=== PATIENT | male | born 1990 | race American Indian/Alaskan Native ===

== ENCOUNTER 2018-06-20 06:33 | Emergency (ER) | payer SELFPAY ==
[2018-06-20] MEDS ORDERED: ATIVAN IM PRN ×3 (09:43)
[2018-06-20] MEDS ORDERED: HALDOL IM PRN (09:43)
--- NOTE | 2018-06-20 09:45 | Emergency Department Report ---
ED General Adult HPI - General Chief complaint: Psych Stated complaint: SUICIDAL THOUGHTS Time Seen by Provider: 06/20/18 09:42 Source: patient, RN notes reviewed Mode of arrival: Ambulatory Limitations: No Limitations - History of Present Illness Initial comments: This is a 27-year-old gentleman who is not known to this provider previously, who presents to the ER with a complaint of suicidality and plan to self-harm with a knife. Symptoms are constant, painless, do not radiate anywhere, and do not have exacerbating or relieving factors. He denies headache, neck pain, chest pain, abdominal pain, shortness of breath. He denies hallucinations and intent to overdose. He also endorses that he consumes 48-72 ounces of malt liquor on a daily basis. He does not feel like he is actively withdrawing from alcohol at this time. Has chronic lower back pain which is not a new, worsening or different. No saddle anesthesia, and no bladder or bowel retention or incontinence. -: Gradual Consistency: constant Improves with: none Worsens with: none Associated Symptoms: malaise, other (see history of present illness). denies: confusion, chest pain, cough, diaphoresis, fever/chills, headaches, loss of appetite, nausea/vomiting, rash, seizure, shortness of breath, syncope, weakness - Related Data Allergies Allergy/AdvReac Type Severity Reaction Status Date / Time No Known Allergies Allergy Unverified 06/20/18 07:12 ED Review of Systems ROS: Stated complaint: SUICIDAL THOUGHTS Other details as noted in HPI Comment: All other systems reviewed and negative Cardiovascular: denies: chest pain Gastrointestinal: denies: abdominal pain Musculoskeletal: back pain Neurological: denies: headache Psychiatric: depression, suicidal thoughts. denies: auditory hallucinations, visual hallucinations, homicidal thoughts ED Past Medical Hx - Past Medical History Previous Medical History?: No - Surgical History Past Surgical History?: No - Social History Smoking Status: Current Every Day Smoker Substance Use Type: Alcohol, Marijuana ED Physical Exam - General Limitations: No Limitations General appearance: alert, in no apparent distress - Head Head exam: Present: atraumatic, normocephalic - Eye Eye exam: Present: normal appearance, EOMI. Absent: nystagmus - ENT ENT exam: Present: normal exam, normal orophraynx, mucous membranes moist, other (no tongue fasciculations noted) - Neck Neck exam: Present: normal inspection, full ROM. Absent: tenderness, meningismus - Respiratory Respiratory exam: Present: normal lung sounds bilaterally. Absent: respiratory distress - Cardiovascular Cardiovascular Exam: Present: regular rate, normal rhythm, normal heart sounds. Absent: bradycardia, tachycardia, irregular rhythm, systolic murmur, diastolic murmur, rubs, gallop - GI/Abdominal GI/Abdominal exam: Present: soft. Absent: distended, tenderness, guarding, rebound, rigid, pulsatile mass - Rectal Rectal exam: Present: deferred - Extremities Exam Extremities exam: Present: normal inspection, full ROM, normal capillary refill , other (2+ pulses noted in the bilateral upper, lower extremities. Compartments soft. No long bony tenderness. The pelvis is stable.). Absent: tenderness, pedal edema, joint swelling, calf tenderness - Back Exam Back exam: Present: normal inspection, full ROM. Absent: tenderness, CVA tenderness (R), paraspinal tenderness, vertebral tenderness - Neurological Exam Neurological exam: Present: alert, oriented X3, CN II-XII intact, normal gait, other (Extraocular movements intact. Tongue midline. No facial droop. Facial sensation intact to light touch in the V1, V2, V3 distribution bilaterally. 5 and 5 strength in 4 extremities.. Sensation is intact to light touch in 4 extremities.). Absent: motor sensory deficit - Psychiatric Psychiatric exam: Present: suicidal ideation. Absent: homicidal ideation - Skin Skin exam: Present: warm, dry, intact, normal color. Absent: rash ED Course Vital Signs 06/20/18 06/20/18 07:07 11:03 Temperature 98.4 F 98.4 F Pulse Rate 77 80 Respiratory 18 20 Rate Blood Pressure 136/88 Blood Pressure 132/90 [Left] O2 Sat by Pulse 97 97 Oximetry ED Medical Decision Making - Lab Data Result diagrams: 06/20/18 09:48 06/20/18 09:48 Vital Signs 06/20/18 06/20/18 07:07 11:03 Temperature 98.4 F 98.4 F Pulse Rate 77 80 Respiratory 18 20 Rate Blood Pressure 136/88 Blood Pressure 132/90 [Left] O2 Sat by Pulse 97 97 Oximetry Lab Results 06/20/18 06/20/18 06/20/18 Range/Units 09:48 09:48 09:48 WBC 12.1 H (4.5-11.0) K/mm3 RBC 4.70 (3.65-5.03) M/mm3 Hgb 15.1 (11.8-15.2) gm/dl Hct 44.4 (35.5-45.6) % MCV 95 H (84-94) fl MCH 32 (28-32) pg MCHC 34 (32-34) % RDW 12.7 L (13.2-15.2) % Plt Count 189 (140-440) K/mm3 Sodium 138 (137-145) mmol/L Potassium 3.9 (3.6-5.0) mmol/L Chloride 100.3 (98-107) mmol/L Carbon Dioxide 21 L (22-30) mmol/L Anion Gap 21 mmol/L BUN 12 (9-20) mg/dL Creatinine 0.9 (0.8-1.5) mg/dL Estimated GFR > 60 ml/min BUN/Creatinine Ratio 13 % Glucose 118 H (75-100) mg/dL Calcium 8.7 (8.4-10.2) mg/dL Magnesium 2.10 (1.7-2.3) mg/dL Total Creatine Kinase 325 H (55-170) units/L Salicylates (2.8-20.0) mg/dL Acetaminophen (10.0-30.0) ug/mL 06/20/18 06/20/18 Range/Units 09:48 09:48 WBC (4.5-11.0) K/mm3 RBC (3.65-5.03) M/mm3 Hgb (11.8-15.2) gm/dl Hct (35.5-45.6) % MCV (84-94) fl MCH (28-32) pg MCHC (32-34) % RDW (13.2-15.2) % Plt Count (140-440) K/mm3 Sodium (137-145) mmol/L Potassium (3.6-5.0) mmol/L Chloride (98-107) mmol/L Carbon Dioxide (22-30) mmol/L Anion Gap mmol/L BUN (9-20) mg/dL Creatinine (0.8-1.5) mg/dL Estimated GFR ml/min BUN/Creatinine Ratio % Glucose (75-100) mg/dL Calcium (8.4-10.2) mg/dL Magnesium (1.7-2.3) mg/dL Total Creatine Kinase (55-170) units/L Salicylates < 0.3 L (2.8-20.0) mg/dL Acetaminophen < 5.0 L (10.0-30.0) ug/mL - Medical Decision Making Differential diagnosis, including but not limited to: Mood disorder, suicidality , alcohol dependence, medical clearance for psychiatric placement Assessment and plan: 27-year-old gentleman with suicidality and plan. He is placed on a 1013. His physical examination is unremarkable. His presentation at this time is not consistent with alcohol withdrawal syndrome. Serum toxicology studies are unremarkable. Patient clinically sober at this time, with a GCS of 15. Explained what a 1013 signifies. As needed medications ordered for alcohol withdrawal as well as agitation. At this point in time, there does not appear to be an immediate medical contraindication to psychiatric admission, evaluation, consultation. The crisis team is paged and informed. Critical care attestation.: If time is entered above; I have spent that time in minutes in the direct care of this critically ill patient, excluding procedure time. ED Disposition Clinical Impression: Medical clearance for psychiatric admission, History of alcohol dependence Disposition: [id number]/TX-65 PSY HOSP/PSY UNIT Is pt being admited?: No Does the pt Need Aspirin: No Condition: Good Referrals: PRIMARY CARE, [Primary Care Provider] - 3-5 Days
[2018-06-20 10:03] LABS: Hematocrit 44.4 % (35.5-45.6); Hemoglobin 15.1 gm/dl (11.8-15.2); Mean Corpuscular HGB Conc 34 % (32-34); Mean Corpuscular Hemoglobin 32 pg (28-32); Mean Corpuscular Volume 95 fl (84-94); Platelet Count 189 K/mm3 (140-440); Red Cell Distribution Width 12.7 % (13.2-15.2)
[2018-06-20 10:18] LABS: BUN/Creatinine Ratio 13; Blood Urea Nitrogen 12 mg/dL (9-20); Calcium 8.7 mg/dL (8.4-10.2); Hemolysis Index 22
[2018-06-20 16:00] LABS: Bilirubin,Urine NEG (Negative); Blood,Urine NEG (Negative); Color,Urine Yellow (Yellow); Mucus,Urine FEW /HPF; Protein,Urine <15 mg/dL mg/dL (Negative); RBC,Urine < 1.0 /HPF (0.0-6.0); Urobilinogen,Urine < 2.0 mg/dL (<2.0)
[2018-06-21 00:39] LABS: Amphetamine Screen,Urine PRESUMPTIVE NEGATIVE; Benzodiazepines Screen,Urine PRESUMPTIVE NEGATIVE; Cocaine Screen,Urine PRESUMPTIVE NEGATIVE; Methadone Screen,Urine PRESUMPTIVE NEGATIVE; Opiate Screen,Urine PRESUMPTIVE NEGATIVE
[2018-06-21 01:36] LABS: Cannabinoid Screen,Urine PRESUMPTIVE POSITIVE
[2018-06-21 15:19] LABS: Alanine Aminotransferase 18 units/L (7-56)
[2018-06-21 15:24] LABS: Bilirubin,Direct < 0.2 mg/dL (0-0.2)
--- NOTE | 2018-06-21 18:45 | Consultation ---
History of Present Illness - Reason for Consult Consult date: 06/21/18 Reason for consult: psychiatric evaluation - Chief Complaint Chief complaint: "depression and suicidal thoughts; I called 911" - History of Present Psychiatric Illness Mr. Sun is a 27 year old male seen in the ER for suicidal ideation with a plan to self-harm with a knife. He denies hallucinations and intent to overdose. He also endorses that he consumes 48-72 ounces of malt liquor on a daily basis. He does not feel like he is actively withdrawing from alcohol at this time. He asks for a nicotine patch and smokes 10 cigarettes per day. He was hospitalized last year for similar symptoms. He was on prozac and trazodone. He would like to restart them. He denies manic or psychotic symptoms. Medications and Allergies Allergies Allergy/AdvReac Type Severity Reaction Status Date / Time No Known Allergies Allergy Unverified 06/20/18 07:12 Active Meds: Active Medications Haloperidol Lactate (Haldol) 5 mg IM Q6HR PRN PRN Reason: Agitation Lorazepam (Ativan) 2 mg IM Q4HR PRN PRN Reason: Agitation Lorazepam (Ativan) 2 mg IM Q2HR PRN PRN Reason: CIWA-Ar 8-15 Lorazepam (Ativan) 4 mg IM Q1H PRN PRN Reason: CIWA-Ar 16-25 Past psychiatric history - Past Medical History Past Medical History: other (scoliosis) - past Psychiatric treatment and history Psych: Addictions, Depression Mental Status Exam - Vital signs Last Vital Signs Temp 98.2 F 06/21/18 13:00 Pulse 55 L 06/21/18 13:00 Resp 20 06/21/18 13:00 BP 119/67 06/21/18 13:00 Pulse Ox 97 06/21/18 13:00 - Exam Orientation: time, place, person Affect: depressed Mood: congruent with affect Thought content: other (suicidal ideation. no HI) Thought Process: Intact Perceptions: none Speech: normal rate and pattern Concentration: focused Motor activity: normal Level of consciousness: alert Memory: Intact Sleep Symptoms: Difficulty Falling Asleep Appetite: decreased Interaction: cooperative Results Result Diagrams: 06/20/18 09:48 06/20/18 09:48 All other labs normal. Assessment and Plan Assessment and plan: Impression: suicidal ideation with a plan to cut himself major depressive disorder, severe, recurrent alcohol use disorder, unspecified, no current withdrawal symptoms Recommendation: start prozac 20mg daily for depression start trazodone 50mg hs for sleep. He was informed of risks vs. benefits and potential side effects add nicotine patch 14mg daily td monitor for alcohol withdrawal dispo: continue 1013 and transfer to inpatient psychiatric facility Staffed with Dr. Luis Eduardo Francois.
[2018-06-21] MEDS ORDERED: XYLOCAINE 2% INFILTRATI ONE (20:58)
[2018-06-21] MEDS: DESYREL PO SCH (23:26)
[2018-06-21] MEDS: HABITROL TD SCH (23:50)
[2018-06-22] MEDS: PROzac PO SCH (10:59)
[2018-06-22] MEDS: HABITROL TD SCH (10:59)
--- NOTE | 2018-06-22 12:43 | Progress Note ---
Subjective - Reason for Consult Consult date: 06/22/18 Reason for consult: Psychiatry Follow-up - Chief Complaint Chief complaint: "I was having a mental breakdown" 27 year old male seen in the ER for suicidal ideation with a plan to self-harm with a knife. Today the patient is calm and cooperative during the assessment. He stated that his life since his adolescent days have been rough. He didn't elaborate more when asked. He stated that prior to his admission to the ER, he wanted his life to end. He stated that he have been doing some reflecting about his life. He stated that he need stabilization. He denies SI/HI's and AVH's. He denies any side effects of his medications. Mental Status Exam - Vital signs Last Vital Signs Temp 98.6 F 06/22/18 01:09 Pulse 61 06/22/18 01:09 Resp 18 06/22/18 01:09 BP 147/75 06/22/18 01:09 Pulse Ox 99 06/22/18 01:09 - Exam Narrative exam: MSE: Appearance: calm, cooperative Behavior: regular eye contact Speech: regular rate and tone Mood: "okay" Affect: flat Thought Process: circumstantial Thought Content: denies SI/HI's and AVH's Motor Activity: ambulatory Cognition: A/O x3 Insight: variable Judgment: variable Assessment and Plan Impression: MDD, Severe Type. R/O Alcohol Use DO. Cannabis Use DO. Today the patient is calm and cooperative during the assessment. DDx: R/O Bipolar Do, R/O Substance Induced Mood DO Recommendation/Plan: Continue 1013, Prozac 20 mg PO daily for depression, and Trazodone 50 mg PO HS for sleep. Discussed possible suicidality/medication induced aundrea reference antidepressants. Dispo: The patient was referred to inpatient psy services. Will staff with Dr. Homar Francois.
[2018-06-22] MEDS: DESYREL PO SCH (21:36)
--- NOTE | 2018-06-23 09:55 | Progress Note ---
Subjective - Reason for Consult Consult date: 06/23/18 Reason for consult: Psychiatry Follow-up - Chief Complaint Chief complaint: "I want the needed help" 27 year old male seen in the ER for suicidal ideation with a plan to self-harm with a knife. Today the patient is calm and cooperative during the assessment. He was more forth coming about his crisis prior to his admission to the ER. He stated that he was "really" having a mental breakdown. He could not explain why , but stated, "I wasn't safe for myself." He stated that he haven't been sleeping well. He stated that this is an issue for him. He denies SI/HI's and AVH's. He denies any side effects of his medications. Mental Status Exam - Vital signs Last Vital Signs Temp 98.1 F 06/22/18 20:44 Pulse 65 06/22/18 20:44 Resp 18 06/22/18 20:44 BP 149/79 06/22/18 20:44 Pulse Ox 99 06/22/18 20:44 - Exam Narrative exam: MSE: Appearance: calm, cooperative Behavior: regular eye contact Speech: regular rate and tone Mood: "okay" Affect: flat Thought Process: circumstantial Thought Content: denies SI/HI's and AVH's Motor Activity: ambulatory Cognition: A/O x3 Insight: variable Judgment: variable Assessment and Plan Impression: MDD, Severe Type. R/O Alcohol Use DO. Cannabis Use DO. Today the patient is calm and cooperative during the assessment. DDx: R/O Bipolar Do, R/O Substance Induced Mood DO Recommendation/Plan: Reevaluate 1013 in 24 hours to determine proper dispo. Continue Prozac 20 mg PO daily for depression and increase Trazodone to 100 mg PO HS for sleep. Discussed possible suicidality/medication induced aundrea reference antidepressants. Dispo: The patient was referred to inpatient psy services. Will staff with Dr. Homar Francois.
[2018-06-23] MEDS: PROzac PO SCH (10:59)
[2018-06-23] MEDS: HABITROL TD SCH (11:30)
[2018-06-23] MEDS ORDERED: DESYREL PO SCH (22:00)
[2018-06-24] MEDS: PROzac PO SCH (10:11)
[2018-06-24] MEDS: HABITROL TD SCH (10:11)
--- NOTE | 2018-06-24 17:15 | Progress Note ---
Subjective - Reason for Consult Consult date: 06/24/18 Reason for consult: Psychiatric Follow-up - Chief Complaint Chief complaint: "I feel real good" Patient is a 27 year old male seen in the ER for suicidal ideation with a plan to self-harm with a knife. Today the patient is calm, cooperative, and compliant during the assessment. On a depression scale from 1 to 10 with 10 being the worse, patient rates his depression " maybe a 2." Patient discussed the following coping skills to help with depression: " writing in a journal, taking Prozac, and counseling. " Provider spoke with patient's girlfriend ( per patient's consent), Leana, she states that patient is safe to return home. Patient has no access weapons. She reports that she and Donal has reached out/contacted the [employer] their [employer] and will be receiving counseling. At the time of discharge, patient is of no danger to self or others. He denies SI/HI's, A/VH's, and delusions. Patient is compliant with medication. He denies any side effects of his medications. Mental Status Exam - Vital signs Last Vital Signs Temp 98.4 F 06/24/18 14:00 Pulse 65 06/24/18 14:00 Resp 18 06/24/18 14:00 BP 142/87 06/24/18 14:00 Pulse Ox 99 06/24/18 14:00 - Exam Narrative exam: Appearance: calm, cooperative Behavior: regular eye contact Speech: regular rate and tone Mood: "real good." euthymic. Affect: appropriate Thought Process: circumstantial Thought Content: denies SI/HI's and AVH's Motor Activity: ambulatory Cognition: A/O x3 Insight: fair Judgment: fair Assessment and Plan Impression: MDD, Severe Type. R/O Alcohol Use DO. Cannabis Use DO. Today the patient is calm and cooperative during the assessment. He denies SI/HI's, A/VH's, and delusions. Patient is in no danger to self or others. He denies SI/ HI's, A/VH's, and delusions. DDx: R/O Bipolar Do, R/O Substance Induced Mood DO Recommendation/Plan: 1. Rescind 1013. No longer meets criteria. 2. Continue Prozac 20 mg PO daily for depression and increase Trazodone to 100 mg PO HS for sleep. Discussed possible suicidality/medication induced aundrea reference antidepressants. 3. Patient will follow-up with the [facility] for outpatient services. 4. Discussed drug/substance abuse. Patient informed of the risks associated with drug use. Rehab recommended. Disposition: The patient will be provided with outpatient referrals. Staffed with Dr. Quinn Francois.
[2018-06-24 20:01] VITALS: BP 133/76
== END 2018-06-24 20:06 | disposition home or self-care (01) ==
LOC: EEVIPCON 06:33 → ED 06:33
DX: F99 Mental disorder, not otherwise specified (principal); F10.230 Alcohol dependence with withdrawal, uncomplicated; F17.200 Nicotine dependence, unspecified, uncomplicated
CPT/HCPCS: 36415; 80048; 80074; 80307; 81001; 82550; 83735; 85027; 99284; G0480; 80320